=== PATIENT | female | born 1960 | race Caucasian/White ===

== ENCOUNTER 2019-01-26 19:49 | Outpatient (CLI) | payer OTHER | END 2019-01-26 19:50 | disposition home or self-care (01) | LOC: LAB 19:49 → EDBD 19:49 → LAB 19:50 | PROVIDERS: ATTEND Nurse Practitioner | DX: R76.0 Raised antibody titer (principal) | CPT/HCPCS: 36415; 86735; 86762; 86765; 86787 ==

== ENCOUNTER 2019-08-20 15:20 | Outpatient (CLI) | payer OTHER | END 2019-08-20 15:21 | disposition home or self-care (01) | LOC: COV 15:20 | PROVIDERS: ATTEND Family Medicine | DX: U07.1 COVID-19 (principal) | CPT/HCPCS: 81599 ==

== ENCOUNTER 2019-08-27 01:52 | Emergency (ER) | payer OTHER ==
--- NOTE | 2019-08-27 01:54 | ED Physician Documentation ---
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 she has a home pulse oximeter and she was having desaturations to the mid 80s at home, continued fevers to 104 unresponsive to tylenol and worsening cough. has been self isolating at home. hx of htn/hld. denies hx of diabetes or immun osupression. has not taken ibuprofen. denies neck pain, rashes, severe headache.) Review of Systems Constitutional: reports: Fever, Chills, Myalgias, Sweats Eyes: reports: Reviewed and negative Ears: reports: Reviewed and negative Nose: reports: Reviewed and negative Throat: reports: Reviewed and negative Cardiac: reports: Reviewed and negative Respiratory: reports: Dyspnea, Cough GI: reports: Reviewed and negative : reports: Reviewed and negative Skin: reports: Reviewed and negative Musculoskeletal: reports: Reviewed and negative Neurologic: reports: Reviewed and negative Psychiatric: reports: Reviewed and negative Endocrine: reports: Reviewed and negative Immunocompromised: reports: Reviewed and negative PD PAST MEDICAL HISTORY - Present Medications Home Medications: Ambulatory Orders Medication Instructions Recorded Confirmed Atorvastatin [Lipitor] 08/27/19 Azithromycin 250 mg PO DAILY 4 Days #4 tablet 08/27/19 Hydroxychloroquine [Plaquenil] 400 mg PO DAILY 6 Days #7 tablet 08/27/19 Losartan/Hydrochlorothiazide 08/27/19 [Losartan-Hctz 50-12.5 mg Tab] Prochlorperazine Maleate 10 mg PO 08/27/19 [Compazine] guaiFENesin/CODEINE [Robitussin AC] 10 ml PO Q6H PRN #120 udc 08/27/19 - Allergies Allergies/Adverse Reactions: Allergies Allergy/AdvReac Type Severity Reaction Status Date / Time Sulfa (Sulfonamide AdvReac Rash Verified 08/27/19 02:17 Antibiotics) PD ED PE NORMAL - Vitals Vital signs reviewed: Yes - General General: Alert and oriented X 3, No acute distress, Well developed/nourished, Other (febrile to touch. currently non toxic and septic appearing. ) - HEENT HEENT: PERRL - Neck Neck: Supple, no meningeal sign - Cardiac Cardiac: RRR, No murmur, Strong equal pulses - Respiratory Respiratory: No respiratory distress, Other (Adventitious lung Sounds in the right middle lobe, breath sounds are present bilaterally, trachea midline no use of accessory muscles no respiratory distress currently.) - Abdomen Abdomen: Normal bowel sounds, Soft, Non tender, Non distended - Back Back: No CVA TTP - Derm Derm: Normal color, Warm and dry, No rash - Extremities Extremities: No deformity, No tenderness to palpate, Normal ROM s pain, No edema, No calf tenderness / cord - Neuro Neuro: Alert and oriented X 3, lock tender 2-12 intact, No motor deficit, No sensory deficit, Normal speech - Psych Psych: Normal mood, Normal affect Results - Vitals Vitals: Vital Signs - 24 hr 08/27/19 08/27/19 08/27/19 02:12 02:43 02:44 Temperature 39.5 C H Heart Rate 86 88 89 Respiratory 22 18 18 Rate Blood Pressure 143/66 H 124/52 L O2 Saturation 95 93 08/27/19 08/27/19 08/27/19 03:01 03:30 03:52 Temperature 99.6 C H Heart Rate 79 75 Respiratory 18 18 Rate Blood Pressure 124/52 L 135/71 H O2 Saturation 96 97 08/27/19 03:59 Temperature Heart Rate 77 Respiratory 18 Rate Blood Pressure 128/63 O2 Saturation 96 Oxygen O2 Source Room air - EKG (time done) 02:16 Rate: Other (no stemi) - Labs Labs: Laboratory Tests 08/27/19 08/27/19 08/27/19 02:15 02:15 02:15 WBC 4.5 L RBC 4.17 L Hgb 13.3 Hct 38.5 MCV 92.3 MCH 31.9 H MCHC 34.5 RDW 13.0 Plt Count 158 MPV 10.0 Neut # (Auto) 3.2 Lymph # (Auto) 1.0 L Pender # (Auto) 0.3 Eos # (Auto) 0.0 Baso # (Auto) 0.0 Absolute Nucleated RBC 0.00 Nucleated RBC % 0.0 PT 13.7 H INR 1.2 APTT 30.1 Sodium Potassium Chloride Carbon Dioxide Anion Gap BUN Creatinine Estimated GFR (MDRD) Glucose Lactic Acid Calcium Total Bilirubin AST ALT Alkaline Phosphatase Total Creatine Kinase Troponin I High Sens B-Natriuretic Peptide 9 Total Protein Albumin Globulin Albumin/Globulin Ratio Lipase Influenza A (Rapid) Influenza B (Rapid) 08/27/19 08/27/19 08/27/19 02:15 02:30 02:30 WBC RBC Hgb Hct MCV MCH MCHC RDW Plt Count MPV Neut # (Auto) Lymph # (Auto) Pender # (Auto) Eos # (Auto) Baso # (Auto) Absolute Nucleated RBC Nucleated RBC % PT INR APTT Sodium 133 L Potassium 3.1 L Chloride 100 L Carbon Dioxide 26 Anion Gap 7.0 BUN 16 Creatinine 0.7 Estimated GFR (MDRD) 86 L Glucose 170 H Lactic Acid 1.1 Calcium 8.0 L Total Bilirubin 0.8 AST 26 ALT 25 Alkaline Phosphatase 67 Total Creatine Kinase 55 Troponin I High Sens 4.8 B-Natriuretic Peptide Total Protein 7.1 Albumin 3.5 Globulin 3.6 Albumin/Globulin Ratio 1.0 Lipase 31 Influenza A (Rapid) Influenza B (Rapid) 08/27/19 02:43 WBC RBC Hgb Hct MCV MCH MCHC RDW Plt Count MPV Neut # (Auto) Lymph # (Auto) Pender # (Auto) Eos # (Auto) Baso # (Auto) Absolute Nucleated RBC Nucleated RBC % PT INR APTT Sodium Potassium Chloride Carbon Dioxide Anion Gap BUN Creatinine Estimated GFR (MDRD) Glucose Lactic Acid Calcium Total Bilirubin AST ALT Alkaline Phosphatase Total Creatine Kinase Troponin I High Sens B-Natriuretic Peptide Total Protein Albumin Globulin Albumin/Globulin Ratio Lipase Influenza A (Rapid) Negative Influenza B (Rapid) Negative PD MEDICAL DECISION MAKING - ED course Complexity details: reviewed results, re-evaluated patient (Patient's now afebrile she is tolerated p.o. challenge ambulating on room air with no hypoxia and feels improved clinically she has been reexamined by myself and she has improved clinically.), considered differential (Patient with known positive Ruddy 19 test presents tonight with desaturations into the mid 80s at home fever unresponsive to Tylenol and worsening shortness of breath plan is to initiate treatment for pneumonia, albuterol MDI, IV Rocephin, IV azithromycin, gentle IV fluids, blood culture x2, 1 view chest x-ray, will send influenza swabs as well and reevaluate.), d/w patient (Had a lengthy discussion with the patient in regards to treatment she is not had any episodes of hypoxia here in the em ergency department her symptoms have improved at this point we had a discussion about risks, benefits and alternatives of treatment for Ruddy 19 to include azithromycin as well as hydroxychloroquine.Patient will be provided a prescription for azithromycin as well as hydroxychloroquine discussed potential adverse side effects such as prolonged QT syndrome patient will be given prescriptions and ultimately will decide if she will fill those prescriptions and initiate treatment.She would assume any and all risks to include any possible adverse reaction to this medication.However if the patient begins to have worsening symptoms she should return to the emergency department reevaluation and also should consider initiating treatment with azithromycin as well as hydroxychloroquine.) Departure - Departure Disposition: 01 Home, Self Care Clinical Impression: COVID-19 virus infection Condition: Stable Instructions: COVID-19 [facility], COVID-19 [facility] Department Statement Follow-Up: your, doctor [Other] - 08/27/19 Prescriptions: Azithromycin 250 mg PO DAILY 4 Days #4 tablet guaiFENesin/CODEINE [Robitussin AC] 10 ml PO Q6H PRN #120 udc PRN Reason: Cough Hydroxychloroquine [Plaquenil] 400 mg PO DAILY 6 Days #7 tablet Comments: call your pcp today to discuss treatment plan and schedule follow up. Discharge Date/Time: 08/27/19 04:09
[2019-08-27] MEDS ORDERED: cefTRIAXone 1 GM in SODIUM CHLORIDE 0.9% MINIBAG 100 ML IV STA (02:17)
[2019-08-27] MEDS ORDERED: AZITHROMYCIN INJ 500 MG in SODIUM CHLORIDE 0.9% 250 ML IV STA (02:17)
[2019-08-27] MEDS ORDERED: ACETAMINOPHEN 325 MG TABLET PO STA (02:18)
[2019-08-27] MEDS ORDERED: ALBUTEROL 1 PUFF INH STA (02:18)
[2019-08-27] MEDS ORDERED: SODIUM CHLORIDE 0.9% 1,000 ML IV ONE (02:19)
[2019-08-27 02:29] LABS: BASOPHILS % (AUTO) 0.2 %; EOSINOPHILS % (AUTO) 0.2 %; HGB - HEMOGLOBIN 13.3 g/dL (12.0-16.0); LYMPHOCYTES % (AUTO) 21.7 %; MEAN CORPUSCULAR HEMOGLOBIN 31.9 pg (27.0-31.0); MEAN CORPUSCULAR HGB CONC 34.5 g/dL (32.0-36.0); MEAN CORPUSCULAR VOLUME 92.3 fL (81.0-99.0); MONOCYTES # (AUTO) 0.3 10^3/uL (0.0-1.0); MONOCYTES % (AUTO) 5.8 %; NEUTROPHILS # (AUTO) 3.2 10^3/uL (1.5-6.6); NEUTROPHILS % (AUTO) 71.7 %; PLT - PLATELET COUNT 158 10^3/uL (130-450); RED BLOOD COUNT 4.17 10^6/uL (4.20-5.40); WHITE BLOOD COUNT 4.5 x10^3/uL (4.8-10.8)
[2019-08-27] MEDS ORDERED: IBUPROFEN 800 MG TABLET PO STA (02:30)
[2019-08-27] MEDS ORDERED: FAMOTIDINE 20 MG/2 ML VIAL IVP STA (02:30)
[2019-08-27 02:36] LABS: INR 1.2 (0.8-1.2); PT - PROTHROMBIN TIME 13.7 secs (9.9-12.6)
[2019-08-27 02:43] LABS: PARTIAL THROMBOPLASTIN TIME 30.1 secs (24.9-33.3)
--- NOTE | 2019-08-27 02:53 | XRAY Report ---
Reason: sob covid Procedure Date: 08/27/2019 Accession Number: [id number] / [id number] Procedure: XR - Chest 1 View X-Ray CPT Code: 45193 Final Report FULL RESULT: EXAM: CHEST RADIOGRAPHY EXAM DATE: 08/27/2019 02:45 AM. CLINICAL HISTORY: Sob covid. COMPARISON: None. TECHNIQUE: 1 view. FINDINGS: Lungs/Pleura: Patchy right greater than left airspace disease. No effusion or pneumothorax. Mediastinum: Within exam limitations, the cardiomediastinal contour is normal. Other: None. IMPRESSION: Patchy right greater than left airspace disease. RADIA
[2019-08-27 02:56] LABS: ALBUMIN 3.5 g/dL (3.2-5.5); BILIRUBIN,TOTAL 0.8 mg/dL (0.2-1.0); CREATININE 0.7 mg/dL (0.4-1.0); TOTAL PROTEIN 7.1 g/dL (6.7-8.2)
[2019-08-27 04:00] VITALS: BP 128/63
--- NOTE | 2019-08-27 22:39 | ED Physician Documentation ---
ED Addendum - Addendum Addendum: 08/27/19 22:37 Chart was accessed this afternoon to clarify a question from Pharmacy about number of Pills to Rx based on the dose/duration of the med. Rx was for #7 tabs, so changed to #14.
== END 2019-08-27 04:09 | disposition home or self-care (01) ==
LOC: ED 01:52
DX: U07.1 COVID-19 (principal); J12.89 Other viral pneumonia
CPT/HCPCS: 36415; 71045; 80053; 82550; 83605; 83690; 83880; 84484; 85025; 85610; 85730; 87040; 87275; 87276; 93005; 94640; 94664; 96365; 96367; 96375; 99284; 99285; A9270

== ENCOUNTER 2020-03-30 21:31 | Emergency (ER) | payer OTHER ==
[2020-03-30] MEDS ORDERED: KETOROLAC 60 MG/2 ML VIAL IM STA (22:10)
[2020-03-30] MEDS ORDERED: ACETAMINOPHEN 325 MG TABLET PO STA (22:10)
--- NOTE | 2020-03-30 22:12 | ED Physician Documentation ---
PD HPI HEAD INJURY - Stated complaint Stated Complaint: HEAD INJURY - Chief complaint Chief Complaint: Trauma Hd/Nk - History obtained from History obtained from: Patient, Family - History of Present Illness Mechanism of head injury: Fell Where head injury occurred: Home Timing - onset: Today Location of injury: Front, Top Quality of pain: Pain Associated symptoms: Neck pain. No: LOC, AMS, Amnesia, Nausea / vomiting, Paresthesias, Seizures, Ear drainage, Nasal drainage Symptoms improve with: Rest, Position Symptoms worsen with: Palpation, Movement Contributing factors: No: Anticoagulated Similar symptoms before: Has not had sx before Recently seen: Not recently seen - Additional information Additional information: 59 y/o female was walking her dog with her when she tripped over a root and fell forward striking her head against the edge of a step. She had no LOC but complains of occipital pain and neck pain on the right side. She is much improved with her pain when she is laying supine. Review of Systems Constitutional: denies: Fever, Chills Eyes: denies: Decreased vision Ears: denies: Loss of hearing, Ear pain Nose: denies: Rhinorrhea / runny nose, Congestion Throat: denies: Sore throat Cardiac: denies: Chest pain / pressure, Palpitations Respiratory: denies: Dyspnea, Cough GI: denies: Nausea, Vomiting : denies: Dysuria, Frequency Skin: denies: Rash Musculoskeletal: reports: Neck pain. denies: Back pain, Extremity pain Neurologic: reports: Headache, Head injury. denies: Generalized weakness, Focal weakness, Numbness, Difficulty speaking, Confused, Altered mental status, LOC PD PAST MEDICAL HISTORY - Past Medical History Cardiovascular: Hypertension, High cholesterol Respiratory: None Neuro: None Endocrine/Autoimmune: None GI: None FORENSIC MEDICAL EXAMINER: None : None HEENT: None Psych: None Musculoskeletal: None Derm: None - Past Surgical History Past Surgical History: Yes General: Appendectomy - Present Medications Home Medications: Ambulatory Orders Medication Instructions Recorded Confirmed Atorvastatin [Lipitor] 08/27/19 Azithromycin 250 mg PO DAILY 4 Days #4 tablet 08/27/19 Hydroxychloroquine [Plaquenil] 400 mg PO DAILY 6 Days #7 tablet 08/27/19 Losartan/Hydrochlorothiazide 08/27/19 [Losartan-Hctz 50-12.5 mg Tab] Prochlorperazine Maleate 10 mg PO 08/27/19 [Compazine] guaiFENesin/CODEINE [Robitussin AC] 10 ml PO Q6H PRN #120 udc 08/27/19 Cyclobenzaprine [Flexeril] 10 mg PO TID PRN #20 tablet 03/30/20 - Allergies Allergies/Adverse Reactions: Allergies Allergy/AdvReac Type Severity Reaction Status Date / Time Sulfa (Sulfonamide AdvReac Rash Verified 08/27/19 02:17 Antibiotics) - Social History Does the pt smoke?: No Smoking Status: Never smoker Does the pt drink ETOH?: No Does the pt have substance abuse?: No - Immunizations Immunizations are current?: Yes - POLST Patient has POLST: No PD ED PE NORMAL - Vitals Vital signs reviewed: Yes (hypertensive mild ) - General General: Alert and oriented X 3, No acute distress, Well developed/nourished - HEENT HEENT: PERRL, EOMI, Other (abrasion to the scalp central about 2cm from the hair line) - Neck Neck: Supple, no meningeal sign, Other (the neck is in a towel roll and the patient is supine ) - Cardiac Cardiac: RRR, No murmur - Respiratory Respiratory: No respiratory distress, Clear bilaterally - Abdomen Abdomen: Normal bowel sounds, Soft, Non tender, Non distended, No organomegaly - Back Back: No CVA TTP, No spinal TTP - Derm Derm: Normal color, Warm and dry, No rash - Extremities Extremities: No deformity, No edema - Neuro Neuro: Alert and oriented X 3, 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, No motor deficit, No sensory deficit, Normal speech Eye Opening: To Voice Motor: Obeys Commands Verbal: Oriented GCS Score: 14 - Psych Psych: Normal mood, Normal affect Results - Vitals Vitals: Vital Signs - 24 hr 03/30/20 03/30/20 03/30/20 21:41 21:44 23:38 Temperature 36.2 C L 36.5 C 36.5 C Heart Rate 65 66 68 Respiratory 20 20 16 Rate Blood Pressure 140/71 H 140/70 H 130/72 O2 Saturation 98 98 98 Oxygen O2 Source Room air - Rads (name of study) CT head Radiology: Prelim report reviewed (Impression: Normal CT of the head), EMP read indepedently, See rad report Cervical spine Radiology: Prelim report reviewed (Impression degenerative changes within the cervical spine. No fractures.), EMP read indepedently, See rad report PD MEDICAL DECISION MAKING - ED course Complexity details: reviewed old records, reviewed results, re-evaluated patient, considered differential, d/w patient, d/w family ED course: 59-year-old female with a contusion to her head and concussion has significant neck pain that is much better in the supine position with a neck roll in place. She has no vomiting difficulty concentrating dizziness or nausea. CT scans of the head and neck were obtained without abnormality. She does have a bruise to her forehead and this will likely result in some discoloration over the next several days. She feels much improved she is given some Tylenol and some Toradol. She declines narcotic prescription and accepts a prescription for Flexeril. Departure - Departure Disposition: 01 Home, Self Care Clinical Impression: Concussion Qualifiers: Encounter type: initial encounter Loss of consciousness presence/duration: without LOC Qualified Code(s): S06.0X0A - Concussion without loss of consciousness, initial encounter Cervical strain, acute Qualifiers: Encounter type: initial encounter Qualified Code(s): S16.1XXA - Strain of muscle, fascia and tendon at neck level, initial encounter Condition: Stable Instructions: ED Concussion, ED Sprain Strain Neck Follow-Up: BEATRIZ DASILVA MD [Primary Care Provider] - Prescriptions: Cyclobenzaprine [Flexeril] 10 mg PO TID PRN #20 tablet PRN Reason: Spasms Discharge Date/Time: 03/30/20 23:38
[2020-03-30 23:39] VITALS: BP 130/72
--- NOTE | 2020-03-31 07:20 | CT Report ---
PROCEDURE: CERVICAL SPINE WO INDICATIONS: head injury neck pain TECHNIQUE: Noncontrast 3 mm thick sections acquired from the skull base to the T4 level. Sagittal and coronal r eformats were then constructed. For radiation dose reduction, the following was used: automated exp osure control, adjustment of mA and/or kV according to patient size. COMPARISON: None. FINDINGS: Image quality: Excellent. Bones: No fractures or dislocations. Visualized superior ribs are intact. Gross spine Soft tissues: Prevertebral soft tissues are normal in thickness. No paravertebral hematomas. No ap ical pneumothoraces. IMPRESSION: No fracture. No acute osseous lesion. If there is continued clinical concern for pathology, then MRI should be considered for further evaluation. Reviewed by: Margarita Tapia MD, PhD on 03/31/2020 7:19 AM PST Approved by: Margarita Tapia MD, PhD on 03/31/2020 7:19 AM [facility] Station ID: [id number]
--- NOTE | 2020-03-31 14:43 | CT Report ---
PROCEDURE: HEAD WO INDICATIONS: concussion TECHNIQUE: Noncontrast 4.5 mm thick angled axial sections acquired from the foramen magnum to the vertex. For r adiation dose reduction, the following was used: automated exposure control, adjustment of mA and/or kV according to patient size. COMPARISON: None. FINDINGS: Image quality: Excellent. CSF spaces: Basal cisterns are patent. No extra-axial fluid collections. Ventricles are normal in size and shape. Brain: No midline shift. No intracranial masses or hemorrhage. Kiser-white matter interface is norm al. Skull and face: Calvarium and visualized facial bones are intact, without suspicious lesions. Sinuses: Visualized sinuses and mastoids are clear. IMPRESSION: No acute intracranial disease process. Reviewed by: Margarita Tapia MD, PhD on 03/31/2020 2:41 PM PST Approved by: Margarita Tapia MD, PhD on 03/31/2020 2:41 PM PST Station ID: [id number]
== END 2020-03-30 23:38 | disposition home or self-care (01) ==
LOC: ED 21:31
DX: S06.0X0A Concussion without loss of consciousness, initial encounter (principal); S16.1XXA Strain of muscle, fascia and tendon at neck level, initial encounter; S00.01XA Abrasion of scalp, initial encounter; W01.198A Fall on same level from slipping, tripping and stumbling with subsequent striking against other object, initial encounter; Y93.K1 Activity, walking an animal; Y92.009 Unspecified place in unspecified non-institutional (private) residence as the place of occurrence of the external cause; I10 Essential (primary) hypertension
CPT/HCPCS: 70450; 72125; 96372; 99284; A9270

== ENCOUNTER 2023-06-10 20:34 | Emergency (ER) | payer OTHER ==
--- NOTE | 2023-06-10 21:21 | ED Physician Documentation ---
History of Present Illness - Stated complaint Stated Complaint: FEVER - Chief complaint Chief Complaint: Resp - History obtained from History obtained from: Patient - History of Present Illness Timing: How many days ago (2) Pain level max: 0 Pain level now: 0 - Additonal information Additional information: 62-year-old female with fever, cough, body aches ongoing for the past 2 days. Nothing makes it better or worse. No dyspnea. No wheezing. No abdominal pain, nausea, vomiting. No rashes. 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 Review of Systems Constitutional: reports: Fever, Chills, Myalgias Respiratory: reports: Cough Skin: denies: Rash Neurologic: denies: Headache PD PAST MEDICAL HISTORY - Past Medical History Past Medical History: Yes Cardiovascular: Hypertension, High cholesterol Respiratory: None Neuro: None Endocrine/Autoimmune: None GI: None SPINDLE TESTER: None : None HEENT: None Psych: None Musculoskeletal: None Derm: None - Past Surgical History Past Surgical History: Yes General: Appendectomy - Present Medications Home Medications: Ambulatory Orders Medication Instructions Recorded Confirmed Atorvastatin [Lipitor] 40 mg PO DAILY 08/27/19 06/10/23 Losartan/Hydrochlorothiazide 1 tab PO DAILY 08/27/19 06/10/23 [Losartan-Hctz 50-12.5 mg Tab] Aspirin [Bernice Aspirin] 81 mg PO DAILY 06/10/23 06/10/23 Nirmatrelvir/Ritonavir [Paxlovid 1 tab PO BID #1 kit 06/10/23 300-100 mg Dose Pack] - Allergies Allergies/Adverse Reactions: Allergies Allergy/AdvReac Type Severity Reaction Status Date / Time Sulfa (Sulfonamide AdvReac Edema Verified 06/10/23 20:48 Antibiotics) - Social History Does the pt smoke?: No Smoking Status: Never smoker Does the pt drink ETOH?: No Does the pt have substance abuse?: No - Immunizations Immunizations are current?: Yes - POLST Patient has POLST: No PD ED PE NORMAL - Vitals Vital signs reviewed: Yes - General General: Alert and oriented X 3, No acute distress, Well developed/nourished - HEENT HEENT: Moist mucous membranes - Neck Neck: Supple, no meningeal sign - Cardiac Cardiac: RRR, Strong equal pulses - Respiratory Respiratory: No respiratory distress, Clear bilaterally - Abdomen Abdomen: Soft, Non tender, Non distended - Derm Derm: Warm and dry - Neuro Neuro: Alert and oriented X 3 Results - Vitals Vitals: Vital Signs - 24 hr 06/10/23 06/10/23 20:43 21:25 Temperature 36.3 C L Heart Rate 74 68 Respiratory 17 16 Rate Blood Pressure 146/61 H 140/78 H O2 Saturation 94 93 Oxygen O2 Source Room air - Labs Labs: Laboratory Tests 06/10/23 20:40 Nasal Adenovirus (PCR) NOT DETECTED Nasal B. parapertussis DNA (PCR) NOT DETECTED Nasal Coronavir 229E PCR NOT DETECTED Nasal Coronavir HKU1 PCR NOT DETECTED Nasal Coronavir NL63 PCR NOT DETECTED Nasal Coronavir OC43 PCR NOT DETECTED Nasal Enterovir/Rhinovir PCR NOT DETECTED Nasal Influenza B PCR NOT DETECTED Nasal Influenza A PCR NOT DETECTED Nasal Parainfluen 1 PCR NOT DETECTED Nasal Parainfluen 2 PCR NOT DETECTED Nasal Parainfluen 3 PCR NOT DETECTED Nasal Parainfluen 4 PCR NOT DETECTED Nasal RSV (PCR) NOT DETECTED Nasal B.pertussis DNA PCR NOT DETECTED Nasal C.pneumoniae (PCR) NOT DETECTED Spencer Human Metapneumo PCR NOT DETECTED Nasal M.pneumoniae (PCR) NOT DETECTED Nasal SARS-CoV-2 (PCR) DETECTED A PD Medical Decision Making - ED course Complexity details: reviewed results, considered differential, d/w patient ED course: Patient has tested positive for COVID. Will prescribe Paxlovid for home. Counseled to stop her statin. Patient is well-appearing, nontoxic. Afebrile here. No hypoxia. No respiratory distress. No evidence of pneumonia, sepsis. No indication for antibiotics. Patient counseled regarding signs and symptoms for which I believe and urgent re-evaluation would be necessary. Patient with good understanding of and agreement to plan and is comfortable going home at this time This document was made in part using voice recognition software. While efforts are made to proofread this document, sound alike and grammatical errors may occur. Departure - Departure Disposition: 01 Home, Self Care Clinical Impression: Viral URI, COVID-19 Condition: Good Instructions: ED Viral Syndrome Follow-Up: Micah Lujan MD [Primary Care Provider] - Prescriptions: Nirmatrelvir/Ritonavir [Paxlovid 300-100 mg Dose Pack] 1 tab PO BID #1 kit Comments: Your respiratory PCR is pending today. I will call you with the results. Please return if you worsen. Drink plenty of fluids and rest. Forms: PCP List Discharge Date/Time: 06/10/23 21:26
[2023-06-10 21:27] VITALS: O2SAT 93
[2023-06-10 21:36] VITALS: BP 140/78
[2023-06-10 21:57] LABS: CORONAVIRUS 229E-RESP PCR NOT DETECTED; CORONAVIRUS HKU1-RESP PCR NOT DETECTED; CORONAVIRUS NL63-RESP PCR NOT DETECTED; CORONAVIRUS OC43-RESP PCR NOT DETECTED
[2023-06-10 21:59] LABS: B. PARAPERTUSSIS- RESP PCR PAN NOT DETECTED; B. PERTUSSIS- RESP PCR PANEL NOT DETECTED; C. PNEUMONIAE- RESP PCR PANEL NOT DETECTED; HUMAN METAPNEUMOVIRUS NOT DETECTED; INFLUENZA A- RESP PCR PANEL NOT DETECTED; INFLUENZA B - RESP PCR PANEL NOT DETECTED; M. PNEUMONIAE- RESP PCR PANEL NOT DETECTED; PARAINFLUENZA VIRUS 1 NOT DETECTED; PARAINFLUENZA VIRUS 2 NOT DETECTED; PARAINFLUENZA VIRUS 3 NOT DETECTED; PARAINFLUENZA VIRUS 4 NOT DETECTED; RHINOVIRUS/ENTEROVIRUS NOT DETECTED; RSV- RESP PCR PANEL NOT DETECTED; SARS-CoV-2 -RESP PCR PANEL DETECTED
== END 2023-06-10 21:26 | disposition home or self-care (01) ==
LOC: ED 20:34
DX: U07.1 COVID-19 (principal); J06.9 Acute upper respiratory infection, unspecified; I10 Essential (primary) hypertension
CPT/HCPCS: 87633; 99283